=== PATIENT | female | born 1960 | race Caucasian/White ===

== ENCOUNTER 2017-09-05 21:28 | Emergency (ER) | payer OTHER ==
[~2017-09-05] VITALS: Ht 165.1 cm; Wt 71.2 kg
[2017-09-05] MEDS ORDERED: ZANTAC 150MG T150 MG PO (21:43)
[2017-09-05] MEDS ORDERED: EFFEXOR 5050 MG/1 T1 PO (21:43)
[2017-09-05] MEDS ORDERED: LOVASTATIN 20 M20 MG PO (21:43)
[2017-09-05] MEDS ORDERED: IBUPROFEN 600600 M1 PO (22:41)
[2017-09-05 22:56] VITALS: BP 122/74
== END 2017-09-05 22:57 | disposition home or self-care (01) ==
LOC: M.ERS 21:28
DX: S93.492A Sprain of other ligament of left ankle, initial encounter (principal); K21.9 Gastro-esophageal reflux disease without esophagitis; E78.00 Pure hypercholesterolemia, unspecified; W18.49XA Other slipping, tripping and stumbling without falling, initial encounter; Y93.89 Activity, other specified; Y92.89 Other specified places as the place of occurrence of the external cause; Y99.8 Other external cause status

== ENCOUNTER → 2020-12-13 | Outpatient (CLI) | payer OTHER ==
[~2020-12-13] MED LIST: EFFEXOR 5050 MG/1 T1 PO; IBUPROFEN 600600 M1 PO; LOVASTATIN 20 M20 MG PO; ZANTAC 150MG T150 MG PO
== END ==
LOC: M.RAD 13:16
PROVIDERS: ATTEND Registered Nurse Diabetes Educator
DX: M19.032 Primary osteoarthritis, left wrist (principal)